=== PATIENT | female | born 1970 | race Caucasian/White ===

== ENCOUNTER 2024-04-28 12:25 | Outpatient (CLI) | payer BC | END 2024-04-28 12:26 | disposition home or self-care (01) | LOC: CSHMAMMO 12:25 | PROVIDERS: ATTEND Internal Medicine | DX: Z12.31 Encounter for screening mammogram for malignant neoplasm of breast (principal); R92.1 Mammographic calcification found on diagnostic imaging of breast; Z80.3 Family history of malignant neoplasm of breast | CPT/HCPCS: 77063; 77067 ==